=== PATIENT | male | born 1990 | race Caucasian/White ===

== ENCOUNTER 2021-05-23 20:21 | Emergency (ER) | payer SELFPAY ==
[~2021-05-23] VITALS: Ht 72 cm; Wt 88.5 kg
--- NOTE | 2021-05-23 21:32 | ED EENT ---
History of Present Illness General Chief Complaint: Nasal Problems Stated Complaint: NOSEBLEED Nursing Triage Note: Pt arrives via POV from home with c/o nosebleed; onset 1700. Pt reports minimal bleeding from right nostril. (JAIME VALDERRAMA) History of Present Illness Date Seen by Provider: May 23, 2021 Time Seen by Provider: 21:10 Initial Comments 30-year-old male presents for right nostril bleeding that began approximately 2 hours ago. He reports there is a significant amount of blood however he has had tach for the last 30 minutes and has had minimal to no bleeding. He has no history of epistaxis. He does report upper respiratory congestion for the last week. Timing/Duration: abrupt, this evening Severity: mild Location: nose Prearrival Treatment: squeezing nostrils, nasal packing Associated Symptoms: denies symptoms (JAIME VALDERRAMA) Allergies and Home Medications Allergies Coded Allergies: No Known Drug Allergies (Unverified , 05/24/21) Patient Home Medication List Home Medication List Reviewed: Yes (JAIME VALDERRAMA) Amoxicillin (Amoxicillin) 875 Mg Tablet, 875 MG PO BID Prescribed by: DIONY ESTEBAN on 05/24/21 0108 Review of Systems Review of Systems Constitutional: no symptoms reported Nose: see HPI, epistaxis (JAIME VALDERRAMA) All Other Systems Reviewed Negative Unless Noted: Yes (JAIME VALDERRAMA) Past Tazzfyy-Ajroqm-Hbatqe Hx Patient Social History Tobacco Use?: Yes Tobacco type used: Cigarettes Smoking Status: Current Everyday Smoker Use of E-Cig and/or Vaping dev: No Substance use?: No Alcohol Use?: No Pt feels they are or have been: No (JAIME VALDERRAMA) Immunizations Up To Date Influenza Vaccine Up-to-Date: No; Not Current (JAIME VALDERRAMA) Family Medical History Reviewed Nursing Family Hx (JAIME VALDERRAMA) Physical Exam Vital Signs Vital Signs - First Documented 05/23/21 21:10 Temp 36.8 Pulse 78 Resp 18 B/P (MAP) 139/102 (114) Pulse Ox 98 O2 Delivery Room Air (DIONY ESTEBAN DO) Height, Weight, BMI Height: '" Weight: lbs. oz. kg; 170.00 BMI Method: General Appearance: WD/WN, no apparent distress Ears: bilateral ear auricle normal, bilateral ear canal normal, bilateral ear TM normal Nose: No active bleeding, No discharge; dried blood; No sinus tenderness Mouth/Throat: normal mouth inspection, pharynx normal Cardiovascular: normal peripheral pulses, regular rate, rhythm Respiratory: chest non-tender, lungs clear Neurologic/Psychiatric: no motor/sensory deficits, alert, normal mood/affect, oriented x 3 (JAIME VALDERRAMA) Progress/Results/Core Measures Results/Orders Blood Pressure Mean: 114 Progress Progress Note : Time: 21:15 Progress Note Patient seen and evaluated, will leave packing out of the right nostril and see if symptoms return. 2134 no further bleeding from the right nare. Discharge instructions and return precautions reviewed. (JAIME VALDERRAMA) Departure Impression Primary Impression: Epistaxis Disposition: HOME, SELF-CARE Condition: Improved Departure-Patient Inst. Decision time for Depature: 21:15 (JAIME VALDERRAMA) Referrals: [facility],LOCAL PHYSICIAN (PCP) Primary Care Physician Patient Instructions: Nosebleeds (DC) Add. Discharge Instructions: Use saline nasal spray every 1-2 hours as needed. Use Afrin nasal spray for nasal congestion for the next 3 days and then discontinue. If nosebleeds occur, pack the nostril and apply ice pack to the outside of the nose. If nosebleed occurs and continues for more than 1 hour, report to the emergency department Return to the emergency department for new, urgent healthcare needs. All discharge instructions reviewed with patient and/or family. Voiced understanding. ATTENDING PHYSICIAN NOTE: I WAS PHYSICALLY PRESENT ER PHYSICIAN WHEN THIS PATIENT WAS IN ER, BUT I WAS NOT INVOLVED IN ANY DECISION MAKING OR ANY CARE OF THIS PATIENT. (DIONY ESTEBAN DO) JAIME VALDERRAMA May 23, 2021 21:32 DIONY ESTEBAN DO May 25, 2021 06:36
[2021-05-23 21:35] VITALS: BP 141/96
[2021-05-24] MEDS ORDERED: AMOX875T2 PO (01:08)
[2021-05-25] MEDS ORDERED: ACHD5005 PO (16:46)
== END 2021-05-23 21:41 | disposition home or self-care (01) ==
LOC: ER 20:23
DX: R04.0 Epistaxis (principal); F17.210 Nicotine dependence, cigarettes, uncomplicated
CPT/HCPCS: 99282

== ENCOUNTER 2021-05-23 23:51 | Emergency (ER) | payer SELFPAY ==
[~2021-05-23] VITALS: Ht 182.8 cm; Wt 88.3 kg
[2021-05-24] MEDS ORDERED: OXYMETAZOLINE (AFRIN) 0.05% NA 30 ML BTL ONE (00:30)
[2021-05-24] MEDS ORDERED: RX-AMOXICILLIN 500 MG CAP #3 PPK PO STA (01:06)
[2021-05-24] MEDS ORDERED: AMOX875T2 PO (01:08)
--- NOTE | 2021-05-24 01:08 | ED EENT ---
History of Present Illness General Chief Complaint: Nasal Problems Stated Complaint: NOSE BLEED Nursing Triage Note: Pt ambulatory into ER via [facility] with complaint of Epistaxis. Pt states that he was just discharged about a hour and a half ago for same thing. Pt states that he was sitting at home smoking a cigarette, and tried to clear his throat and spit out some phlegm and his nose started to bleed again. PT packed both sides with paper towel in one side, and tampon in other. Allergies and Home Medications Allergies Coded Allergies: No Known Drug Allergies (Unverified , 05/24/21) Past Cwwnrtr-Urdunq-Oycrkx Hx Patient Social History Tobacco Use?: Yes Tobacco type used: Cigarettes Smoking Status: Current Everyday Smoker Use of E-Cig and/or Vaping dev: No Substance use?: No Alcohol Use?: Yes Alcohol type: Beer, Hard Liquor Alcohol Frequency: Rarely Pt feels they are or have been: No Immunizations Up To Date Influenza Vaccine Up-to-Date: No; Not Current Physical Exam Vital Signs Vital Signs - First Documented 05/23/21 23:55 Temp 37.0 Pulse 78 Resp 16 B/P (MAP) 134/68 (90) Pulse Ox 99 O2 Delivery Room Air Height, Weight, BMI Height: '" Weight: lbs. oz. kg; 26.00 BMI Method: Progress/Results/Core Measures Results/Orders My Orders Orders - DIONY ESTEBAN DO Oxymetazoline 0.05% Nasal [place] (Afrin 0. (05/24/21 09:00) Oxymetazoline 0.05% Nasal [place] (Afrin 0. (05/24/21 00:30) Vital Signs/I&O 05/23/21 23:55 Temp 37.0 Pulse 78 Resp 16 B/P (MAP) 134/68 (90) Pulse Ox 99 O2 Delivery Room Air Blood Pressure Mean: 90 Departure Impression Primary Impression: Right-sided epistaxis Disposition: 01 HOME, SELF-CARE Condition: Improved Departure-Patient Inst. Decision time for Depature: 01:07 Referrals: MARIA ISABEL WEEKS MD NO,LOCAL PHYSICIAN (PCP) Primary Care Physician Patient Instructions: Nosebleeds (DC) Add. Discharge Instructions: LEAVE PACKING IN PLACE DO NOT BLOW, OR RUB OR PICK AT YOUR NOSE OR TOUCH THE PACKING DEVICE FOLLOW UP WITH DR. WEEKS IN 2-3 DAYS--CALL IN THE MORNING TO SCHEDULE APPOINTMENT All discharge instructions reviewed with patient and/or family. Voiced understanding. Scripts Amoxicillin (Amoxicillin) 875 Mg Tablet 875 MG PO BID, #20 TAB Prov: DIONY ESTEBAN DO 05/24/21 DIONY ESTEBAN DO May 24, 2021 01:08
[2021-05-24 01:50] VITALS: BP 127/67
[2021-05-24] MEDS ORDERED: OXYMETAZOLINE (AFRIN) 0.05% NA 30 ML BTL SCH (09:00)
[2021-05-25] MEDS ORDERED: ACHD5005 PO (16:46)
== END 2021-05-24 01:40 | disposition home or self-care (01) ==
LOC: EDUNIT# 23:51 → ER 23:52
DX: R04.0 Epistaxis (principal); F17.210 Nicotine dependence, cigarettes, uncomplicated
CPT/HCPCS: 30903

== ENCOUNTER 2021-05-24 10:28 | Emergency (ER) | payer SELFPAY ==
[~2021-05-24] VITALS: Ht 182 cm; Wt 88.3 kg
[~2021-05-24 10:28] MED LIST: AMOX875T2 PO
--- NOTE | 2021-05-24 11:22 | ED EENT ---
History of Present Illness General Chief Complaint: Nasal Problems Stated Complaint: NOSE BLEED, REPACK Nursing Triage Note: PT AMB TO RM 3 PT CO OF NOSE BLEEDING CONT, PT WAS SEEN IN ED EARLIER THIS AM, PT NOSE WAS PACKED PT SENT HOME TO SEE DR LEE AT 1500 TODAY, PT NOSE STARTED BLEEDING AGAIN, PT WAS SEEN AT [facility] [address] REPACK THIS AM. PT TO ED CO OF NOSE BLEEDING AGAIN DESPITE PACKING, PT STATES GOING DOWN BACK OF THROAT, PT IS SPITTING UP BRIGHT RED BLOOD INTERMITTENTLY. Source: patient Exam Limitations: no limitations History of Present Illness Date Seen by Provider: May 24, 2021 Time Seen by Provider: 11:17 Initial Comments Patient is a 30-year-old male who presents ED with continuous right naris bleed. Patient was seen here in the ER yesterday and had packing placed. He reports continuous bleeding. Patient states he was seen at [facility] and repacked his right naris. He has had continuous bleeding. He reports dripping on the right naris, left naris and in the back of his throat. Denies of any vomiting, headache, dizziness, ear pain. Denies history of hypertension, blood thinner use. Allergies and Home Medications Allergies Coded Allergies: No Known Drug Allergies (Unverified , 05/24/21) Patient Home Medication List Home Medication List Reviewed: Yes Amoxicillin (Amoxicillin) 875 Mg Tablet, 875 MG PO BID Prescribed by: DIONY ESTEBAN on 05/24/21 0108 Review of Systems Review of Systems Constitutional: No no symptoms reported; see HPI; No chills, No diaphoresis, No dizziness, No fever Eyes: Denies Blurred Vision, Denies Drainage, Denies Inflammation Ears: Denies See HPI, Denies Dizziness, Denies Pain, Denies Tinnitus, Denies Bloody Discharge, Denies Clear Discharge Nose: clots, epistaxis, bloody discharge Mouth: denies clots, denies loose teeth Throat: denies pain, denies swelling Respiratory: No cough, No dyspnea on exertion, No hemoptysis, No orthopnea Cardiovascular: No Hx of Intervention Gastrointestinal: see HPI; No abdominal pain, No constipation, No diarrhea Musculoskeletal: No back pain, No gout, No joint pain Skin: see HPI; No change in color, No change in hair/nails Neurological: Denies Anxiety, Denies Depressed Past Uozcgjj-Uuxwti-Vmcekx Hx Patient Social History Tobacco Use?: Yes Tobacco type used: Cigarettes Smoking Status: Current Everyday Smoker Substance use?: No Alcohol Use?: No Physical Exam Vital Signs Vital Signs - First Documented 05/24/21 10:40 Temp 36.7 Pulse 85 Resp 18 B/P (MAP) 142/94 (110) Pulse Ox 96 Height, Weight, BMI Height: '" Weight: lbs. oz. kg; 26.00 BMI Method: General Appearance: WD/WN Eyes: bilateral eye normal inspection, bilateral eye PERRL, bilateral eye EOMI Ears: bilateral ear auricle normal, bilateral ear canal normal, bilateral ear TM normal Nose: active bleeding Mouth/Throat: No normal mouth inspection, No pharynx normal, No dental tenderness, No foreign body; other (Oropharynx with clots without active bleeding.) Neck: non-tender, full range of motion, supple Cardiovascular: normal peripheral pulses, regular rate, rhythm, no edema, no gallop Respiratory: chest non-tender, lungs clear, normal breath sounds Gastrointestinal: normal bowel sounds, non tender, soft, no organomegaly Neurologic/Psychiatric: packer sausage and wiener II-XII nml as tested, no motor/sensory deficits, a lert, normal mood/affect, oriented x 3 Skin: normal color, warm/dry Procedures/Interventions Nasal : Nasal Location: Right Clots Cleared from Nasal: Patient Blowing Nasal Procedures: Rapid Rhino Progress Rapid Rhino placed in right naris. Successful placement. Clots were blown out and removed. Progress/Results/Core Measures Results/Orders Vital Signs/I&O 05/24/21 10:40 Temp 36.7 Pulse 85 Resp 18 B/P (MAP) 142/94 (110) Pulse Ox 96 Blood Pressure Mean: 110 Departure Communication (Admissions) Patient with continuous right naris bleed. Appears to be an anterior bleed. Discussed patient with Dr. Lee ENT. He has a follow-up at 3:00 today. Recommend applying a Rhino Rocket. They applied a nasal tampon at [facility]. Mild bleeding noted. Controlled after Rhino Rocket. Patient feeling much better at this time. Patient will be discharged with follow-up with ENT. Return precautions were discussed. Impression Primary Impression: Epistaxis Disposition: 01 HOME, SELF-CARE Condition: Improved Departure-Patient Inst. Decision time for Depature: 11:44 Referrals: MARIA ISABEL LEE MD NO,LOCAL PHYSICIAN (PCP) Primary Care Physician Patient Instructions: Chana (DC) MARCOS LONG May 24, 2021 11:22
[2021-05-24 11:47] VITALS: BP 142/94
[2021-05-25] MEDS ORDERED: ACHD5005 PO ×2 (16:46)
== END 2021-05-24 11:47 | disposition home or self-care (01) ==
LOC: EDUNIT# 10:28 → ER 10:30
DX: R04.0 Epistaxis (principal); F17.210 Nicotine dependence, cigarettes, uncomplicated
CPT/HCPCS: 99281

== ENCOUNTER 2021-05-25 12:45 | Day surgery (SDC) | payer SELFPAY ==
[~2021-05-25] VITALS: Ht 72 cm; Wt 85.4 kg
[2021-05-25] VITALS (9 sets, daily range): BP systolic 129–142; BP diastolic 84–99
[2021-05-25] MEDS ORDERED: PHENYLEPHRINE 0.5% NASAL SPR (NEO-SYNEPHRINE) REG ONE (13:51)
[2021-05-25] MEDS ORDERED: COCAINE HCL 4% 2 ML SYR ONE (13:51)
[2021-05-25] MEDS ORDERED: LIDOCAINE/EPI 1%-1:100,000 (XYLOCAINE) 20ML ONE (13:51)
[2021-05-25] MEDS ORDERED: MUPIROCIN 2% OINT 22 GM (BACTROBAN) TUBE ONE (13:51)
[2021-05-25 13:53] LABS: BASOPHILS % (AUTO) 0 % (0-10); EOSINOPHILS % (AUTO) 0 % (0-10); HEMATOCRIT 41 % (40-54); HEMOGLOBIN 14.4 g/dL (13.3-17.7); LYMPHOCYTES # (AUTO) 3.4 10^3/uL (1.0-4.0); LYMPHOCYTES % (AUTO) 29 % (12-44); MEAN CORPUSCULAR HEMOGLOBIN 33 pg (25-34); MEAN CORPUSCULAR HGB CONC 35 g/dL (32-36); MEAN CORPUSCULAR VOLUME 92 fL (80-99); MEAN PLATELET VOLUME 9.5 fL (9.0-12.2); MONOCYTES # (AUTO) 0.6 10^3/uL (0.0-1.0); MONOCYTES % (AUTO) 5 % (0-12); NEUTROPHILS # (AUTO) 7.5 10^3/uL (1.8-7.8); NEUTROPHILS % (AUTO) 64 % (42-75); PLATELET COUNT 277 10^3/uL (130-400); WHITE BLOOD COUNT 11.6 10^3/uL (4.3-11.0)
[2021-05-25] MEDS ORDERED: LACTATED RINGERS 1,000 ML IV PRN (14:15)
[2021-05-25] MEDS ORDERED: MIDAZOLAM 2 MG/2 ML (VERSED) VIAL IV ONE (14:15)
[2021-05-25] MEDS ORDERED: proPOfol 200 MG/20 ML (DIPRIVAN) VIAL IV ONE (14:25)
[2021-05-25] MEDS ORDERED: LIDOCAINE PF 2% 5 ML (XYLOCAINE) VIAL ONE (14:25)
[2021-05-25] MEDS ORDERED: fentaNYL INJ 100 MCG/2 ML AMP ONE (14:26)
--- NOTE | 2021-05-25 15:15 | Progress Note-Pre Operative ---
Pre-Operative Progress Note H&P Reviewed The H&P was reviewed, patient examined and no changes noted. Date Seen by Provider: May 25, 2021 Time Seen by Provider: 15:00 Date H&P Reviewed: May 25, 2021 Time H&P Reviewed: 15:00 Pre-Operative Diagnosis: Right Posterior Epistaxis MARIA ISABEL WEEKS MD May 25, 2021 15:15
[2021-05-25] MEDS ORDERED: ONDANSETRON 4 MG/2 ML (SDV) Z0FRAN ONE (15:28)
[2021-05-25] MEDS ORDERED: SEVOFLURANE (ULTANE) 15 ML INHAL SOLN ONE (15:28)
[2021-05-25] MEDS ORDERED: ROCURONIUM 10 MG/ML 5 ML SYRINGE IV ONE (15:28)
[2021-05-25] MEDS ORDERED: SUCCINYLCHOLINE INJ 100 MG/5 ML SYR/VIAL ONE (15:28)
[2021-05-25] MEDS ORDERED: NEOSTIGMINE 3 MG/3 ML VIAL ONE (15:58)
[2021-05-25] MEDS ORDERED: GLYCOPYRROLATE 0.2 MG/ML (ROBINUL) 2 ML VIAL ONE (15:59)
--- NOTE | 2021-05-25 16:03 | Progress Note-Post Operative ---
Post-Operative Progess Note Surgeon (s)/Light Coil Winder (s) Surgeon MARIA ISABEL WEEKS MD Light Coil Winder n/a Pre-Operative Diagnosis Right Posterior Epistaxis Post-Operative Diagnosis same Post-Op Procedure Note Date of Procedure: May 25, 2021 Name of Procedure Performed: Endoscopic Repair of Right Posterior Epistaxis Description & Findings Description and Findings: n/a Anesthesia Type get Estimated Blood Loss minimal Packing none. Specimen(s) collected/removed none MARIA ISABEL WEEKS MD May 25, 2021 16:03
[2021-05-25] MEDS ORDERED: HYDROmorphone 2 MG/ML VIAL (DILAUDID) IV ONE (16:15)
[2021-05-25] MEDS ORDERED: D5 1/2 NS W/KCL 20 MEQ/L 1,000 ML IV SCH (16:15)
[2021-05-25] MEDS ORDERED: HYDROcodone/APAP 5 MG/325 MG (LORTAB) TAB PO PRN (16:15)
[2021-05-25] MEDS ORDERED: ONDANSETRON 4 MG/2 ML (SDV) Z0FRAN IVP PRN (16:15)
[2021-05-25] MEDS ORDERED: PHENYLEPHRINE 0.5% NASAL SPR (NEO-SYNEPHRINE) REG PRN (16:15)
--- NOTE | 2021-05-25 16:44 | Anesthesia-General Post-Op ---
General Patient Condition Mental Status/LOC: Same as Preop Cardiovascular: Satisfactory Nausea/Vomiting: Absent Respiratory: Satisfactory Pain: Controlled Complications: Absent Post Op Complications Complications None Follow Up Care/Instructions Patient Instructions None needed. Anesthesia/Patient Condition Patient Condition Patient is doing well, no complaints, stable vital signs, no apparent adverse anesthesia problems. No complications reported per nursing. D/C home per [facility] Criteria: Yes EDWARDO BUCHANAN CRNA May 25, 2021 16:44
[2021-05-25] MEDS ORDERED: ACHD5005 PO ×2 (16:46)
[2021-05-25] MEDS ORDERED: HYDROcodone/APAP 5 MG/325 MG (LORTAB) TAB ONE (17:09)
[2021-05-25] MEDS ORDERED: HYDROcodone/APAP 5 MG/325 MG (LORTAB) TAB PO ONE (17:15)
== END 2021-05-25 18:37 | disposition home or self-care (01) ==
LOC: SDC 12:45
PROVIDERS: ATTEND Otolaryngology Otolaryngology/Facial Plastic Surgery
DX: R04.0 Epistaxis (principal); R05.9 Cough, unspecified
CPT/HCPCS: 36415; 85025; 87081; 87636

== ENCOUNTER → 2021-08-19 | Outpatient (REF) ==
[~2021-08-19] MED LIST changes: +ACHD5005 PO
--- NOTE | 2021-08-19 14:30 | Diagnostic Imaging Report ---
INDICATION: Chest pain. PA and lateral views were obtained. FINDINGS: The heart size, mediastinal configuration, and pulmonary vascularity are within normal limits. There is no pleural effusion, pneumothorax, or pneumonia. The osseous structures are unremarkable. IMPRESSION: No acute cardiopulmonary abnormality. Dictated by: Dictated on workstation # [id number]
== END ==
LOC: OCC 13:47
PROVIDERS: ATTEND Family Medicine
DX: R07.9 Chest pain, unspecified (principal)
CPT/HCPCS: 71046